=== PATIENT | female | born 1980 | race Two or more races ===

== ENCOUNTER 2017-03-06 11:34 | Emergency (ER) | payer MEDICAID ==
[~2017-03-06] VITALS: Ht 157.5 cm; Wt 61.2 kg
[~2017-03-06 11:34] MED LIST: IBUP200C3
[2017-03-06 12:17] VITALS: BP 146/76
[2017-03-06] MEDS: TETANUS-DIPTH-ACEL PERTUSSIS 0.5ML SYRG IM ONE (12:42)
[2017-03-06] MEDS: methylPREDNISolone SOD SUCC 125 MG/2 ML VL IM ONE (12:43)
[2017-03-06] MEDS: cefTRIAXone SOD 1,000 MG VL IM ONE (12:43)
== END 2017-03-06 13:04 | disposition home or self-care (01) ==
LOC: ER 11:34
DX: S50.862A Insect bite (nonvenomous) of left forearm, initial encounter (principal); W57.XXXA Bitten or stung by nonvenomous insect and other nonvenomous arthropods, initial encounter; Y93.89 Activity, other specified; Y99.8 Other external cause status; Y92.89 Other specified places as the place of occurrence of the external cause
CPT/HCPCS: 90471; 90715; 96372; 99284; J0696; J2930

== ENCOUNTER 2021-11-15 08:33 | Observation (INO) | payer MEDICAID ==
[~2021-11-15] VITALS: Ht 157.5 cm; Wt 72.1 kg
[2021-11-15] MEDS ORDERED: TERBUTALINE SULFATE 1 MG/ML 1ML VIAL SC ONE (10:30)
[2021-11-15] MEDS ORDERED: PREN-96 PO (10:58)
[2021-11-15] MEDS ORDERED: LACTATED RINGER'S 1,000 ML IV ONE (11:30)
== END 2021-11-15 13:20 | disposition home or self-care (01) ==
LOC: LDRP 08:59
PROVIDERS: ADMIT Obstetrics & Gynecology; ATTEND Obstetrics & Gynecology
DX: Z36.1 Encounter for antenatal screening for raised alphafetoprotein level (principal); Z3A.31 31 weeks gestation of pregnancy; Z87.891 Personal history of nicotine dependence
CPT/HCPCS: 59025; 76818; 81002; 94760; 96360; 96372; G0378; J3105

== ENCOUNTER 2021-11-18 09:05 | Observation (INO) | payer MEDICAID ==
[~2021-11-18 09:05] MED LIST changes: -IBUP200C3; +PREN-96 PO
== END 2021-11-18 09:49 | disposition home or self-care (01) ==
LOC: LDRP 09:05
PROVIDERS: ADMIT Obstetrics & Gynecology; ATTEND Obstetrics & Gynecology
DX: O26.893 Other specified pregnancy related conditions, third trimester (principal); R77.2 Abnormality of alphafetoprotein; O60.03 Preterm labor without delivery, third trimester; Z3A.31 31 weeks gestation of pregnancy; Z87.891 Personal history of nicotine dependence
CPT/HCPCS: 59025; 81002; 94760; G0378

== ENCOUNTER → 2021-11-24 08:50 | Observation (INO) | payer MEDICAID | END | disposition home or self-care (01) | LOC: LDRP 08:50 | PROVIDERS: ADMIT Obstetrics & Gynecology; ATTEND Obstetrics & Gynecology | DX: O42.913 Preterm premature rupture of membranes, unspecified as to length of time between rupture and onset of labor, third trimester (principal); Z3A.32 32 weeks gestation of pregnancy | CPT/HCPCS: 59025; 76818; 81002; G0378 ==

== ENCOUNTER 2021-12-01 08:00 | Observation (INO) | payer MEDICAID | END 2021-12-01 09:27 | disposition home or self-care (01) | LOC: LDRP 08:00 | PROVIDERS: ADMIT Obstetrics & Gynecology; ATTEND Obstetrics & Gynecology | DX: O28.1 Abnormal biochemical finding on antenatal screening of mother (principal); Z3A.33 33 weeks gestation of pregnancy | CPT/HCPCS: 59025; 76818; 81002; 94760; G0378 ==

== ENCOUNTER 2021-12-08 08:00 | Observation (INO) | payer MEDICAID | END 2021-12-08 09:47 | disposition home or self-care (01) | LOC: LDRP 08:00 | PROVIDERS: ADMIT Obstetrics & Gynecology; ATTEND Obstetrics & Gynecology | DX: O26.893 Other specified pregnancy related conditions, third trimester (principal); R10.9 Unspecified abdominal pain; Z36.1 Encounter for antenatal screening for raised alphafetoprotein level; Z3A.34 34 weeks gestation of pregnancy; Z87.891 Personal history of nicotine dependence | CPT/HCPCS: 59025; 76818; 81002; 94760; G0378 ==

== ENCOUNTER 2021-12-13 08:10 | Observation (INO) | payer MEDICAID | END 2021-12-13 09:35 | disposition home or self-care (01) | LOC: LDRP 08:10 | PROVIDERS: ADMIT Obstetrics & Gynecology; ATTEND Obstetrics & Gynecology | DX: O35.8XX0 Maternal care for other (suspected) fetal abnormality and damage, not applicable or unspecified (principal); O42.913 Preterm premature rupture of membranes, unspecified as to length of time between rupture and onset of labor, third trimester; Z3A.35 35 weeks gestation of pregnancy | CPT/HCPCS: 59025; 76818; 81002; 94760; G0378 ==

== ENCOUNTER 2021-12-20 15:07 | Observation (INO) | payer MEDICAID | END 2021-12-30 10:04 | disposition home or self-care (01) | LOC: LDRP 12-30 08:00 | PROVIDERS: ADMIT Obstetrics & Gynecology; ATTEND Obstetrics & Gynecology | DX: O42.92 Full-term premature rupture of membranes, unspecified as to length of time between rupture and onset of labor (principal); Z3A.37 37 weeks gestation of pregnancy | CPT/HCPCS: 59025; 76818; 81002; 94760; G0378 ==

== ENCOUNTER 2021-12-30 22:10 | Observation (INO) | payer MEDICAID | END 2021-12-30 23:48 | disposition home or self-care (01) | LOC: LDRP 22:10 | PROVIDERS: ADMIT Obstetrics & Gynecology; ATTEND Obstetrics & Gynecology | DX: O62.9 Abnormality of forces of labor, unspecified (principal); Z3A.37 37 weeks gestation of pregnancy | CPT/HCPCS: 59025; 81002; 94760; G0378 ==

== ENCOUNTER 2022-01-04 10:26 | Observation (INO) | payer MEDICAID | END 2022-01-06 11:29 | disposition home or self-care (01) | LOC: LDRP 01-06 08:53 | PROVIDERS: ADMIT Obstetrics & Gynecology; ATTEND Obstetrics & Gynecology | DX: O28.1 Abnormal biochemical finding on antenatal screening of mother (principal); Z3A.38 38 weeks gestation of pregnancy; Z87.891 Personal history of nicotine dependence | CPT/HCPCS: 59025; 76818; 81002; 94760; G0378 ==

== ENCOUNTER 2022-01-07 06:31 | Inpatient (IN) | payer MEDICAID ==
[2022-01-06 10:16] LABS: Basophils # (auto) 0 10 ^3/uL (0-0.2); Basophils % (auto) 0.4 % (0.0-2.0); Eosinophils # (auto) 0 10 ^3/uL (0-0.8); Eosinophils % (auto) 0.7 % (0.0-7.0); Hematocrit 37.5 % (36.0-46.0); Hemoglobin 13.2 g/dL (12.2-16.2); Lymphocytes % (auto) 15.4 % (10.0-50.0); Mean Corpuscular Hemoglobin 33.8 pg (28.0-32.0); Mean Corpuscular Hgb Conc. 35.4 g/dL (32.0-36.0); Mean Corpuscular Volume 95.5 fL (80.0-100.0); Monocytes # (auto) 0.4 10 ^3/uL (0-1.3); Neutrophils # (auto) 5.1 10 ^3/uL (1.6-8.6); Neutrophils % (auto) 77.5 % (37.0-80.0); Red Blood Cells 3.92 10^6/uL (4.0-5.20); Red Cell Distribution Width 13.3 % (11.8-14.3); White Blood Cell 6.6 10^3/uL (4.4-10.8)
[2022-01-06 10:24] LABS: INR 0.92 (0.9-1.15); Partial Thromboplastin Time 23.6 sec (23.6-33.0)
[2022-01-06 10:32] LABS: Potassium 3.6 mmol/L (3.5-5.1)
[2022-01-06 10:39] LABS: Albumin 2.6 g/dL (3.4-5.0); Bilirubin, Total 0.7 mg/dL (0.2-1.0); Calcium 8.5 mg/dL (8.5-10.1); Total Protein 6.4 g/dL (6.4-8.2)
[~2022-01-07] VITALS: Ht 157.5 cm; Wt 72.0 kg
[2022-01-07] VITALS (16 sets, daily range): BP systolic 85–108; BP diastolic 53–71
[2022-01-07 06:07] LABS: RPR Non Reactive (Non Reactive)
[2022-01-07] MEDS ORDERED: ceFAZolin 2 GM in D5W 5% 100 ML IV ONE (07:00)
[2022-01-07] MEDS ORDERED: LACTATED RINGER'S 1,000 ML IV ONE (07:00)
[2022-01-07 08:19] LABS: Urine WBC None Seen /hpf (0 - 5)
[2022-01-07] MEDS ORDERED: ceFAZolin 1GM VL ONE (08:33)
[2022-01-07 08:36] LABS: Urine Bacteria NONE SEEN /hpf (None Seen); Urine Blood Negative /uL (Negative)
[2022-01-07 08:55] LABS: Alcohol, Urine < 3.0 mg/dL (0-10); Amphetamine Screen, Urine NEGATIVE (NEGATIVE); Barbiturate Scree,Urine NEGATIVE (NEGATIVE); Benzodiazephine Screen, Urine NEGATIVE (NEGATIVE); Cannabinoid Screen, Urine NEGATIVE (NEGATIVE); Cocaine Screen, Urine NEGATIVE (NEGATIVE); Opiate Scree,Urine NEGATIVE (NEGATIVE); Phencyclidine Screen, Urine NEGATIVE (NEGATIVE)
[2022-01-07] MEDS ORDERED: MORPHINE SULF PF 5 MG/10 ML VIAL ONE (09:07)
[2022-01-07 09:28] LABS: Basophils # (auto) 0 10 ^3/uL (0-0.2); Basophils % (auto) 0.3 % (0.0-2.0); Eosinophils # (auto) 0 10 ^3/uL (0-0.8); Eosinophils % (auto) 0.5 % (0.0-7.0); Hematocrit 36.7 % (36.0-46.0); Hemoglobin 12.8 g/dL (12.2-16.2); Lymphocytes # (auto) 1.3 10 ^3/uL (0.4-5.4); Lymphocytes % (auto) 16.4 % (10.0-50.0); Mean Corpuscular Hemoglobin 33.5 pg (28.0-32.0); Mean Corpuscular Hgb Conc. 34.8 g/dL (32.0-36.0); Mean Corpuscular Volume 96.4 fL (80.0-100.0); Monocytes # (auto) 0.4 10 ^3/uL (0-1.3); Monocytes % (auto) 5.3 % (0.0-12.0); Neutrophils # (auto) 6.2 10 ^3/uL (1.6-8.6); Neutrophils % (auto) 77.5 % (37.0-80.0); Nucleated Red Blood Cells % 0.1 %; Red Blood Cells 3.81 10^6/uL (4.0-5.20); Red Cell Distribution Width 13.2 % (11.8-14.3)
[2022-01-07] MEDS ORDERED: ePHEDrine SULFATE 50 MG/ML AMP ONE (09:33)
[2022-01-07] MEDS ORDERED: oxyTOCIN 10 UNIT/ML 10ML VIAL ONE (09:48)
[2022-01-07] MEDS ORDERED: DexAMETHasone SOD PHOS 10MG/1ML VIAL INJ ONE (09:48)
[2022-01-07] MEDS ORDERED: ONDANSETRON HCL 4 MG/2 ML VIAL ONE (09:48)
[2022-01-07] MEDS ORDERED: HYDROmorphone HCL 2 MG/ML VL IV PRN ×2 (11:00)
[2022-01-07] MEDS ORDERED: NALOXONE HCL 0.4 MG/ML VIAL IV PRN (11:00)
[2022-01-07] MEDS ORDERED: ONDANSETRON HCL 4 MG/2 ML VIAL IV PRN ×2 (11:00)
[2022-01-07] MEDS ORDERED: LABETALOL HCL 5 MG/ML 4ML SYRINGE IV PRN (11:00)
[2022-01-07] MEDS ORDERED: diphenhdrAMINE HCL 50 MG/1 ML VL IV PRN (11:00)
[2022-01-07] MEDS ORDERED: HYDROmorphone HCL 2 MG/ML VL ONE (11:01)
[2022-01-07] MEDS: LACTATED RINGER'S 1,000 ML IV SCH ×2 (12:32→14:36)
[2022-01-07] MEDS ORDERED: ceFAZolin 1GM/50ML 50 ML IV SCH (17:00)
[2022-01-07] MEDS: ACETAMINOPHEN IV 1000 MG/100ML (10MG/ML) IV PRN (21:42)
[2022-01-08] VITALS (11 sets, daily range): BP systolic 87–107; BP diastolic 40–64
[2022-01-08] MEDS: LACTATED RINGER'S 1,000 ML IV SCH
[2022-01-08] MEDS: ceFAZolin 1GM/50ML 50 ML IV SCH ×2 (01:00→09:27)
[2022-01-08] MEDS: ACETAMINOPHEN IV 1000 MG/100ML (10MG/ML) IV PRN (05:23)
[2022-01-08 06:16] LABS: Basophils # (auto) 0 10 ^3/uL (0-0.2); Eosinophils # (auto) 0 10 ^3/uL (0-0.8); Eosinophils % (auto) 0.1 % (0.0-7.0); Red Blood Cells 2.07 10^6/uL (4.0-5.20)
[2022-01-08 06:18] LABS: Basophils % (auto) 0.2 % (0.0-2.0); Hematocrit 19.8 % (36.0-46.0); Lymphocytes # (auto) 1.6 10 ^3/uL (0.4-5.4); Lymphocytes % (auto) 12.3 % (10.0-50.0); Mean Corpuscular Hemoglobin 34.1 pg (28.0-32.0); Mean Corpuscular Hgb Conc. 35.5 g/dL (32.0-36.0); Monocytes % (auto) 7.9 % (0.0-12.0); Neutrophils % (auto) 79.5 % (37.0-80.0); Red Cell Distribution Width 13.4 % (11.8-14.3); White Blood Cell 12.6 10^3/uL (4.4-10.8)
[2022-01-08] MEDS ORDERED: HYDROcodone-ACET 5/325MG TAB PO PRN (08:00)
[2022-01-08] MEDS ORDERED: BISACODYL 10 MG RECT SUPP PR PRN (08:00)
[2022-01-08] MEDS: IBUPROFEN 800 MG TAB PO PRN ×2 (09:29→17:24)
[2022-01-08] MEDS: DOCUSATE SOD 100 MG CAP PO SCH ×2 (10:16→21:31)
[2022-01-08] MEDS: SIMETHICONE 80 MG CHEWABLE TABLET PO SCH ×3 (13:13→21:31)
[2022-01-08] MEDS: HYDROcodone-ACET 5/325MG TAB PO PRN ×2 (13:44→21:31)
[2022-01-09 03:00] VITALS: BP 85/44
[2022-01-09] MEDS: IBUPROFEN 800 MG TAB PO PRN ×3 (03:17→13:51)
[2022-01-09] MEDS: SIMETHICONE 80 MG CHEWABLE TABLET PO SCH (05:47)
[2022-01-09 07:00] VITALS: BP 96/63
[2022-01-09] MEDS: HYDROcodone-ACET 5/325MG TAB PO PRN (07:45)
[2022-01-09] MEDS ORDERED: HYDR-4902 PO ×2 (10:01→10:41)
[2022-01-09] MEDS ORDERED: IBUP800T26 PO (10:40)
[2022-01-09] MEDS ORDERED: DOCU100C10 PO (10:40)
== END 2022-01-09 14:30 | disposition home or self-care (01) | DRG 540 ==
LOC: LDRP 06:31
PROVIDERS: ADMIT Obstetrics & Gynecology; ATTEND Obstetrics & Gynecology
PROC: 10D00Z1 Extraction of Products of Conception, Low, Open Approach (ICD-10-PCS; principal; 2022-01-07 09:20)
DX: O32.1XX0 Maternal care for breech presentation, not applicable or unspecified (principal); R71.0 Precipitous drop in hematocrit; Z20.822 Contact with and (suspected) exposure to COVID-19; Z37.0 Single live birth; Z3A.39 39 weeks gestation of pregnancy
CPT/HCPCS: 36415; 76805; 80053; 80307; 81001; 84112; 85025; 85610; 85730; 86592; 86850; 86900; 86901; 94760; 94762; 96360; 96361; 96366; G0378; J0131; J0690; J1100; J2405; J2590; J7060